=== PATIENT | female | born 1965 | race Caucasian/White ===

== ENCOUNTER 2018-12-10 18:33 | Emergency (ER) | payer SELFPAY ==
[~2018-12-10 18:33] MED LIST: FLU60VIA41 IM; LEVO112T44 PO; NORG1TAB74 PO; NORG1TAB76 PO; ZOLP-1 PO
--- NOTE | 2018-12-10 18:58 | ER Report ---
History and Physical Time Seen By MD: 18:44 Hx. of Stated Complaint: LACERACTION HPI/ROS CHIEF COMPLAINT: forehead laceration HISTORY OF PRESENT ILLNESS: This is a 53 year old female. She hit her forehead on a cabinet edge while going to sit up. Laceration to forehead. No loss of consciousness. No nausea, dizziness or headache. Normal vision. She is alert and oriented. No neck pain. No visual changes. Allergies: Coded Allergies: No Known Drug Allergies (Unverified , 12/10/18) Home Meds Active Scripts Norgestimate-Ethinyl Estradiol (SPRINTEC) 1 Each Tablet, 1 TAB PO DAILY, #3 PACK 4 Refills Prov:DEMI FENTON DO 05/10/18 Levothyroxine Sodium (SYNTHROID) 112 Mcg Tablet, 1 TAB PO QDAY, #90 TAB 3 Refills Prov:DEMI FENTON DO 05/10/18 Zolpidem Tartrate (AMBIEN) 5 Mg Tablet, 1 TAB PO QHS, #30 TAB 3 Refills Prov:DEMI FENTON DO 04/06/18 Reviewed Nurses Notes: Yes Smoking Status: Never Smoker Constitutional Vital Sign - Last 24 Hours 12/10/18 12/10/18 12/10/18 12/10/18 18:33 18:42 18:45 18:48 Temp 99.0 Pulse ??? 63 66 Resp 13 B/P (MAP) 98/78 (85) 98/78 Pulse Ox 95 95 O2 Delivery Room Air 12/10/18 12/10/18 12/10/18 12/10/18 19:03 19:18 19:23 19:38 Pulse 66 67 69 65 Pulse Ox 97 96 96 98 12/10/18 19:41 B/P (MAP) 106/71 (83) Physical Exam General: Alert, no distress. Skin: about 4cm laceration vertically from hairline of mid forehead down to above the eyebrows. Into subcutaneous tissue. Bleeding controlled. Cardio: Normal perfusion. Neuro: Normal sensation. Alert and oriented x4. ENT: PERRL, EOMI Medical Decision Making ED Course/Re-evaluation ED Course Procedure: Laceration Repair Verbal consent from patient after discussing repair options, risks and benefits. Wound cleaned extensively with Hibiclens and saline. Anesthesia: 1% lidocaine with epinephrine, and 0.5% bupivacaine. Location: Forehead. Length: 4 cm. Character: Linear, into subcutaneous tissue. Wound repair: Running 4-0 Prolene subcuticular. The wound repair was simple and performed by myself. Wound care instructions discussed. Sutures need to be removed in 7 days. Tetanus booster given. Decision to Disposition Date: Dec 10, 2018 Decision to Disposition Time: 19:34 Depart Departure Latest Vital Signs Vital Signs Date Time Temp Pulse Resp B/P (MAP) Pulse Ox O2 Delivery O2 Flow Rate FiO2 12/10/18 19:41 106/71 (83) 12/10/18 19:38 65 98 12/10/18 18:45 99.0 13 Room Air Impression: Primary Impression: Forehead laceration Condition: Improved Disposition: HOME OR SELF-CARE Referrals: IRIS JOHNSON APRNP-C (PCP) Patient Instructions: Laceration (ED) Additional Instructions: Wound Care: Wash the wound once a day with soap and water. Dry the wound and apply a small amount of antibiotic ointment with a clean dressing. If the dressing becomes wet or dirty, repeat cleaning and dressing as above. No soaking the wound; no swimming. Stitches need to be removed in 5-7 days. Pain Control: Use Tylenol or ibuprofen for pain. Using and ice pack can help reduce swelling. Problem Qualifiers Primary Impression: Forehead laceration Encounter type: initial encounter Qualified Codes: S01.81XA - Laceration without foreign body of other part of head, initial encounter SUGAR ESPINO MD Dec 10, 2018 18:58
[2018-12-10] MEDS ORDERED: DIPHTH/TETANUS/ACEL. PERTUSSIS IM ONLY ONE (19:35)
[2018-12-10 19:41] VITALS: BP 106/71
== END 2018-12-10 19:41 | disposition home or self-care (01) ==
LOC: ER 18:44
DX: S01.81XA Laceration without foreign body of other part of head, initial encounter (principal); W22.8XXA Striking against or struck by other objects, initial encounter
CPT/HCPCS: 99283